=== PATIENT | female | born 1950 | race Caucasian/White ===

== ENCOUNTER 2018-08-04 17:23 | Inpatient (IN) | payer MEDICARE ==
[~2018-08-04] VITALS: Ht 160 cm; Wt 114.6 kg
[~2018-08-04 17:23] MED LIST: ANASTROZOLE1 MG PO; ATIVAN1 MG PO; CARTIA XT120 MG; CLARITIN PO; COUMADIN PO; FLONASE16 GM; HEMOCYTE PLUS1 EACH PO; HYDROCODON-ACE1 EA11 PO; LEVAQUIN500 MG PO; LISINOPRIL; PANTOPRAZOLE SO40 MG PO; PAROXETINE HCL10 MG PO; PREVACID PO; PROAIR HFA INH8.5 GM INH; PROTONIX40 MG/ML PO; TAMOXIFEN; TESSALON PERLE100 M1 PO; TYLENOL PM EX-1 EACH PO; ULTRAM50 MG PO; WARFARIN SODIUM5 MG PO; XARELTO10 MG; Z.0.ANASTROZOLE1 MG PO; Z.0.HEMOCYTE PLUS1 E PO; Z.0.VENTOLIN HFA18 G IH; [UNRECOGNIZED DRUG - OTHER] NS; [UNRECOGNIZED DRUG - OTHER] NS; [UNRECOGNIZED DRUG - OTHER] PO; [UNRECOGNIZED DRUG - OTHER] PO
[2018-08-04] MEDS ORDERED: SODIUM CHLORIDE 0.9% 250ML 250 ML IV STA (19:32)
[2018-08-04] MEDS ORDERED: ASPIRIN 81 MG CHEW TAB PO ONE ×2 (19:45→23:15)
[2018-08-04 20:00] LABS: BASOPHILS # (AUTO) 0.1 (0.0-0.1); BASOPHILS % 0.5 % (0.0-1.0); EOSINOPHILS # (AUTO) 0.6 (0.0-0.4); EOSINOPHILS % 5.7 % (0.0-6.0); HEMATOCRIT 30.8 % (34.2-44.1); HEMOGLOBIN 9.6 g/dL (12.0-16.0); LYMPHOCYTES # (AUTO) 2.5 (1.0-3.2); LYMPHOCYTES % 22.7 % (18.0-39.1); MEAN CORPUSCULAR HEMOGLOBIN 26.2 pg (28-32); MEAN CORPUSCULAR HGB CONC 31.2 g/dL (31-35); MEAN CORPUSCULAR VOLUME 84.2 fL (81-99); MONOCYTES # (AUTO) 0.9 (0.2-0.8); MONOCYTES % 7.7 % (4.4-11.3); NEUTROPHILS # (AUTO) 6.9 (2.1-6.9); NEUTROPHILS % 62.9 % (38.7-80.0); PLATELET COUNT 381 x10e3/uL (140-360); RED BLOOD COUNT 3.66 x10e6/uL (3.6-5.1); RED CELL DISTRIBUTION WIDTH 15.9 % (11.7-14.4)
[2018-08-04 20:09] LABS: INR 0.95; PROTHROMBIN TIME 13.6 seconds (11.9-14.5)
[2018-08-04 20:10] LABS: PARTIAL THROMBOPLASTIN TIME 25.9 seconds (23.8-35.5)
[2018-08-04 20:19] LABS: ALANINE AMINOTRANSFERASE 13 IU/L (0-55); ALBUMIN 2.8 g/dL (3.5-5.0); ALBUMIN/GLOBULIN RATIO 0.6 (0.8-2.0); ALKALINE PHOSPHATASE 87 IU/L (40-150); ANION GAP 11.1 mmol/L (8-16); BLOOD UREA NITROGEN 6 mg/dL (7-26); BUN/CREATININE RATIO 8 (6-25); CALCIUM 9.3 mg/dL (8.4-10.2); CARBON DIOXIDE 26 mmol/L (22-29); CHLORIDE 98 mmol/L (98-107); CREATINE KINASE 12 IU/L (29-168); CREATININE, SERUM 0.72 mg/dL (0.57-1.11); EST GLOMERULAR FILTRATION RATE > 60 ML/MIN (60-); GLUCOSE 110 mg/dL (74-118); POTASSIUM 3.1 mmol/L (3.5-5.1); SODIUM 132 mmol/L (136-145)
[2018-08-04] MEDS ORDERED: TRAMADOL HCL 50 MG TAB PO ONE (20:30)
--- NOTE | 2018-08-04 20:30 | Diagnostic Imaging Report ---
EXAMINATION: CHEST SINGLE (PORTABLE) INDICATION: Weakness. COMPARISON: 02/16/2012. FINDINGS: TUBES and LINES: Left chest Port-A-Cath with distal tip projected on the expected location of the high SVC/limited vein, unchanged. LUNGS: Lungs are mildly hypoinflated. Biapical pleural scarring. There is no evidence of pneumonia or pulmonary edema. PLEURA: No pleural effusion or pneumothorax. HEART AND MEDIASTINUM: The cardiomediastinal silhouette is unremarkable. BONES AND SOFT TISSUES: No acute osseous lesion. Soft tissues are unremarkable. UPPER ABDOMEN: No free air under the diaphragm. IMPRESSION: No acute thoracic abnormality. Signed by: Dr. Saima Mcneil M.D. on 08/04/2018 8:27 PM
[2018-08-04] MEDS ORDERED: POTASSIUM CHLORIDE 20 MEQ TAB CR PO ONE (20:45)
[2018-08-04 22:46] LABS: BILIRUBIN,URINE NEGATIVE (NEGATIVE); CLARITY,URINE SL CLOUDY (CLEAR); COLOR,URINE YELLOW (YELLOW); KETONES,URINE NEGATIVE (NEGATIVE); LEUKOCYTE ESTERASE ,URINE NEGATIVE (NEGATIVE); NITRITE,URINE NEGATIVE (NEGATIVE); PROTEIN,URINE DIPSTICK NEGATIVE (NEGATIVE); URINE UROBILINOGEN 0.2 mg/dL (0.2 - 1)
[2018-08-04 22:59] LABS: BACTERIA,URINE MANY /HPF; EPITHELIAL CELLS,URINE FEW /LPF; RBC,URINE 0-5 /HPF (0-5)
--- OUTSIDE RECORDS SUMMARY | 2018-08-05 02:54 | XMS REPORT ---
Author Author [facility] Address Unknown Phone Unavailable Care Team Providers Care Sign Out Clerk Name Role Phone Royal KEYS Unavailable Unavailable Problems This patient has no known problems. Allergies, Adverse Reactions, Alerts This patient has no known allergies or adverse reactions. Medications This patient has no known medications. Results Test Description Test Time Test Comments Text Results Atomic Results Result Comments CHEST SINGLE (PORTABLE) 2018-08-04 20:17:00 [place] [id number] Patient Name: EULALIO RAM MR #: [id number] : 1950 Age/Sex: 67/F Req #: [id number] Adm Physician: Ordered by: EDWAR KEYS MD Report #: [id number] Location: ER Room/Bed: Procedure: [id number] DX/CHEST SINGLE (PORTABLE) Exam Date: Exam Time: REPORT STATUS: Signed EXAMINATION: CHEST SINGLE (PORTABLE) INDICATION: We akness. COMPARISON: 02/16/2012. FINDINGS: TUBES and LINES: Left chest Port-A-Cath with distal tip projected on the expected location of the high SVC/limited vein, unchanged. LUNGS: Lungs are mildly hypoinflated. Biapical pleural scarring. There is no evidence of pneumonia or pulmonary edema. PLEURA: No pleural effusion or pneumothorax. HEART AND MEDIASTINUM: The cardiomediastinal silhouette is unremarkable. BONES AND SOFT TISSUES: No acute osseous lesion. Soft tissues are unremarkable. UPPER ABDOMEN: No free air under the diaphragm. IMPRESSION: No acute thoracic abnormality. Signed by: Dr. Saima Parra M.D. on 08/04/2018 8:27 PM Dictated By: ALEX PARRA MD, MD 26 Transcribed By: JANESSA on 08/04/182026 COPY TO: EDWAR KEYS MD
[2018-08-05] MEDS: NITROFURANTOIN 50 MG CAP PO ONE ×2 (02:58→03:04)
[2018-08-05] MEDS ORDERED: NITROFURANTOIN MACROCRYSTALS 100 MG CAP ONE (03:04)
[2018-08-05] MEDS ORDERED: TRAMADOL HCL 50 MG TAB PO PRN (04:45)
[2018-08-05 05:43] LABS: CREATINE KINASE MB 0.6 ng/mL (0-5.0)
--- NOTE | 2018-08-05 06:44 | History and Physical ---
NO DICTATION, LENGTH 0:10 Job#: [id number] RI
[2018-08-05 14:34] LABS: CREATINE KINASE MB 0.7 ng/mL (0-5.0)
[2018-08-05] MEDS ORDERED: ALBUTEROL SULFATE HFA 8GM INHALATION AEROSOL INH PRN (14:45)
[2018-08-05] MEDS ORDERED: POTASSIUM CHLORIDE 10MEQ EA PO ONE (15:00)
[2018-08-05 15:49] VITALS: BP 106/56
[2018-08-05] MEDS: RIVAROXABAN 15 MG TABLET PO SCH (17:15)
[2018-08-05 19:55] VITALS: BP 119/57
[2018-08-05 20:00] VITALS: BP 119/57
[2018-08-05] MEDS: TRAMADOL HCL 50 MG TAB PO PRN (20:40)
[2018-08-05] MEDS ORDERED: DIPHENHYDRAMINE PO PRN (21:00)
[2018-08-05] MEDS ORDERED: ACETAMINOPHEN PO PRN (21:00)
[2018-08-06] VITALS (7 sets, daily range): BP systolic 105–145; BP diastolic 53–67
[2018-08-06 05:20] LABS: BASOPHILS # (AUTO) 0.1 (0.0-0.1); BASOPHILS % 0.8 % (0.0-1.0); EOSINOPHILS # (AUTO) 0.8 (0.0-0.4); EOSINOPHILS % 8.4 % (0.0-6.0); HEMOGLOBIN 9.2 g/dL (12.0-16.0); LYMPHOCYTES # (AUTO) 2.6 (1.0-3.2); LYMPHOCYTES % 27.9 % (18.0-39.1); MEAN CORPUSCULAR HEMOGLOBIN 26.1 pg (28-32); MEAN CORPUSCULAR HGB CONC 30.7 g/dL (31-35); MONOCYTES # (AUTO) 0.8 (0.2-0.8); MONOCYTES % 8.6 % (4.4-11.3); NEUTROPHILS # (AUTO) 5.1 (2.1-6.9); PLATELET COUNT 394 x10e3/uL (140-360); RED BLOOD COUNT 3.53 x10e6/uL (3.6-5.1); RED CELL DISTRIBUTION WIDTH 15.9 % (11.7-14.4)
[2018-08-06 05:41] LABS: ANION GAP 11.7 mmol/L (8-16); BLOOD UREA NITROGEN 8 mg/dL (7-26); BUN/CREATININE RATIO 11 (6-25); CALCIUM 9.1 mg/dL (8.4-10.2); CARBON DIOXIDE 28 mmol/L (22-29); CHLORIDE 101 mmol/L (98-107); CREATININE, SERUM 0.74 mg/dL (0.57-1.11); EST GLOMERULAR FILTRATION RATE > 60 ML/MIN (60-); GLUCOSE 104 mg/dL (74-118); POTASSIUM 3.7 mmol/L (3.5-5.1); SODIUM 137 mmol/L (136-145)
[2018-08-06] MEDS: TRAMADOL HCL 50 MG TAB PO PRN ×2 (05:46→18:11)
[2018-08-06] MEDS: PAROXETINE HCL 20 MG TAB PO SCH (08:52)
[2018-08-06] MEDS: PANTOPRAZOLE SOD 40 MG TABEC PO SCH (08:52)
[2018-08-06] MEDS ORDERED: PAROXETINE HCL 10 MG PO SCH (09:00)
[2018-08-06] MEDS ORDERED: DILTIAZEM HCL ER 120 MG CAPCR PO SCH ×2 (09:00)
[2018-08-06] MEDS ORDERED: DILTIAZEM HCL 180 MG CAP ER PO SCH (09:00)
[2018-08-06] MEDS ORDERED: RIVAROXABAN 10 MG TABLET PO SCH (09:00)
[2018-08-06] MEDS: DILTIAZEM HCL ER 120 MG CAPCR PO SCH (10:06)
--- NOTE | 2018-08-06 16:20 | Progress Note ---
DATE: INTERNAL MEDICINE PROGRESS NOTE SUBJECTIVE: A 67-year-old female came here with chest pain. PHYSICAL EXAM VITAL SIGNS: Blood pressure 120/67, temperature 97.2, heart rate 93 per minute, respiratory rate 19 per minute, and oxygen saturation 93%. HEART: Regular rhythm. Normal S1, S2 sounds. LUNGS: Clear bilaterally. ABDOMEN: Soft. EXTREMITIES: Show no evidence of cyanosis, edema, or trauma. BLOOD WORK: On the BMP, sodium 137, potassium 3.7, chloride 101, CO2 of 28, BUN 8, creatinine 0.74, and glucose 104. On the CBC, white blood count 9.44, hemoglobin 9.2, hematocrit 30.0, and platelet count 384,000. PT 13.6, INR 0.95, PTT 25.9, AST 19, ALT 13, total bilirubin 0.4, and alkaline phosphatase 87. The EKG showed sinus rhythm with sinus arrhythmia, occasional PVCs. No evidence of any ST segment elevation or depression. Troponins are negative. IMPRESSION AND PLAN: We are going to get a cardiology consult with Dr. Sally Ruby. Continue albuterol q.6 hours. Tramadol 50 mg q.4 hours. Protonix 40 mg daily. Paxil 10 mg daily. She is on Xarelto 15 mg daily and Cardizem 240 mg daily. Cardiology will decide whether or not she needs stress test. Job#: [id number] ROLY
[2018-08-06] MEDS: RIVAROXABAN 15 MG TABLET PO SCH (17:10)
[2018-08-07] VITALS: BP 103/51
--- NOTE | 2018-08-07 00:58 | Consultation ---
DATE OF CONSULTATION: August 06, 2018 CARDIOLOGY CONSULTATION REQUESTING PHYSICIAN: Dr. Ji. REASON FOR CONSULTATION: Chest pain. HISTORY OF PRESENT ILLNESS: This is a 67-year-old woman with history of asthma, COPD, reported history of venous thrombosis, and atrial fibrillation, on Xarelto, who presents with complaints of chest pain. The patient reports she began having stabbing chest pain yesterday morning, 6/10 in severity associated with diaphoresis and shortness of breath. This lasted approximately 2 to 3 minutes. The patient subsequently presented to the ER for further evaluation. Of note, patient indicates she had symptoms suggestive of orthopnea for 1 year as well as lower extremity swelling for the last week. REVIEW OF SYSTEMS: Negative except as per HPI. PAST MEDICAL HISTORY 1. History of venous thrombosis. 2. Atrial fibrillation, on Xarelto. 3. Asthma/COPD. 4. Breast cancer, status post radical mastectomy. PAST SURGICAL HISTORY 1. Radical mastectomy. 2. Right ganglion cyst removal. 3. Hysterectomy. 4. Knee surgery. 5. Ankle surgery. ALLERGIES: PLEASE SEE EMR. MEDICATIONS: Please see medication list. SOCIAL HISTORY: Previously smoked 2 packs a day for approximately 10 years, but quit 30 years ago. No alcohol or drugs. FAMILY HISTORY: Pertinent for father with heart disease, although details are not available. PHYSICAL EXAMINATION VITAL SIGNS: Temperature 97.2 degrees, pulse 93, respiratory rate 19, blood pressure 120/67, oxygen saturation 93% on 3 liters nasal cannula. GENERAL: Morbidly obese woman, in no acute distress. HEENT: Normocephalic, atraumatic. Pupils equal. No sclerae icterus. NECK: Supple. No thyromegaly or cervical lymphadenopathy. No carotid bruits. LUNGS: Clear to auscultation bilaterally. No wheezes or crackles. CARDIOVASCULAR: Normal rate. Regular rhythm. No murmur. Normal S1 and S2. ABDOMEN: Soft, nontender. EXTREMITIES: Trace edema at the ankles. LABS: WBC 9.44, hemoglobin 9.2, hematocrit 30, platelets 394. Sodium 137, potassium 3.7, chloride 101, CO2 of 28, BUN 8, creatinine 0.74, troponin 0.007. BNP 123. LDL 100, HDL 31, triglycerides 113, , cholesterol 154. Chest x-ray, no acute thoracic abnormality. EKG; sinus rhythm with sinus arrhythmia and occasional PVCs. No specific ST abnormality. IMPRESSION 1. Chest pain. 2. Atrial fibrillation, on Xarelto. 3. History of venous thrombosis. 4. Asthma/chronic obstructive pulmonary disease. RECOMMENDATIONS: Patient ruled out for myocardial infarction with serial cardiac biomarkers. Due to the reported history of venous thrombosis, differential includes pulmonary embolism. We will check a d-dimer; if positive, proceed with CTA of the chest and the bilateral lower extremity venous Doppler. In the meantime, obtain echocardiogram. Given risk factors, ischemic evaluation is warranted with pharmacologic nuclear stress test. Monitor patient on telemetry. Continue Xarelto as well as Diltiazem. Thank you for this consult. We will continue to follow. Job#: [id number] DEBBIE
[2018-08-07 04:00] VITALS: BP 118/59
[2018-08-07] MEDS: TRAMADOL HCL 50 MG TAB PO PRN ×2 (05:21→20:06)
[2018-08-07 08:44] VITALS: BP 116/58
[2018-08-07] MEDS: PAROXETINE HCL 20 MG TAB PO SCH (10:23)
[2018-08-07] MEDS: DILTIAZEM HCL ER 120 MG CAPCR PO SCH (10:23)
[2018-08-07] MEDS: PANTOPRAZOLE SOD 40 MG TABEC PO SCH (10:23)
[2018-08-07 12:23] VITALS: BP 120/59
--- NOTE | 2018-08-07 13:48 | Progress Note ---
DATE: INTERNAL MEDICINE PROGRESS NOTE SUBJECTIVE: Patient is complaining of shortness of breath when she lies flat. We are going to give her some albuterol. Apparently, she had a history of asthma before. PHYSICAL EXAMINATION VITAL SIGNS: Blood pressure 116/58, temperature 96.8, heart rate 83 per minute, respiratory rate 19 per minute, oxygen saturation 92%. HEART: Showed regular rhythm. Normal S1, S2 sounds. LUNGS: Clear bilaterally. ABDOMEN: Soft. EXTREMITIES: Show no evidence of cyanosis, edema, or trauma. LABS: On the BMP; sodium 137, potassium 3.7, chloride 101, CO2 of 28, BUN 9, creatinine 0.74, glucose 104. On the CBC; white blood count 9.44, hemoglobin 9.2, hematocrit 30.0, platelet count 394,000. PT 13.6, PTT 25.9, INR 0.95. AST 19, ALT 13, total bilirubin 0.4, alkaline phosphatase of 87. FINAL IMPRESSION 1. Chest pain, rule out coronary artery syndrome. 2. History of pulmonary embolism. 3. History of chronic obstructive pulmonary disease. 4. Chronic anemia. PLAN OF TREATMENT: We are going to do a CT of the chest because of the D-dimer being positive. The patient has been refusing that because she said she cannot lie flat because of her asthma, so she wants albuterol before the test, so we are going to provide her with albuterol before she goes and then she will have to start albuterol 2 puffs every 6 hours as needed for wheezing. She is scheduled for an adenosine Cardiolite tomorrow by Dr. Ruby to rule out coronary artery disease because she came with chest pain. Continue Cardizem 240 mg daily. Continue Protonix 40 mg daily. Continue Paxil 10 mg daily, Xarelto 15 mg daily, and tramadol 50 mg q.4 hours as needed for pain. Dr. Ruby is on the case from the cardiology point of view also. We have done a chest x-ray, which came back negative and so far, the troponins are negative. Job#: [id number] DERREK
[2018-08-07] MEDS ORDERED: FUROSEMIDE INJ 10 MG/ML 4 ML VIAL IV SCH (15:00)
[2018-08-07 16:08] VITALS: BP 121/55
[2018-08-07] MEDS: FUROSEMIDE INJ 10 MG/ML 4 ML VIAL IV SCH ×2 (17:10→21:00)
[2018-08-07] MEDS: RIVAROXABAN 15 MG TABLET PO SCH (17:10)
--- NOTE | 2018-08-07 18:49 | Progress Note ---
DATE: August 07, 2018 CARDIOLOGY PROGRESS NOTE SUBJECTIVE: The patient complains of chest pressure and shortness of breath. OBJECTIVE VITAL SIGNS: Temperature 97.4 degrees, pulse 87, respiratory rate 19, blood pressure 120/59, oxygen saturation 97% on 3 liters nasal cannula. GENERAL: Morbidly obese woman, in no acute distress. LUNGS: Clear to auscultation bilaterally. No wheezes or crackles. CARDIOVASCULAR: Normal rate, regular rhythm. No murmur. Normal S1, S2. ABDOMEN: Soft, nontender. EXTREMITIES: No edema. CARDIAC MEDICATIONS 1. Rivaroxaban 15 mg p.o. daily. 2. Diltiazem 240 mg p.o. daily. LABS: None today. TELEMETRY: Normal sinus rhythm. IMPRESSION 1. Chest pressure and shortness of breath. 2. Elevated D-dimer. 3. Atrial fibrillation, on Xarelto. 4. History of venous thrombosis. 5. Asthma/chronic obstructive pulmonary disease. RECOMMENDATIONS: Patient ruled out for myocardial infarction with serial cardiac biomarkers. Due to elevated D-dimer, CTA of the chest was ordered; however, patient refused both last night and today. Continue Xarelto. Unclear why patient is only on 15 mg daily as her renal function is reasonable. We will increase Xarelto to 20 mg daily. Nuclear stress test is warranted and planned for the morning if patient will agree. Continue current cardiac medications. Otherwise, monitor patient on telemetry. We will start Lasix given elevated BNP and evidence of diastolic dysfunction on echocardiogram. Thank you for this consult. We will continue to follow. Job#: [id number] ROLY
[2018-08-07 20:00] VITALS: BP_SYST 103; BP_SYST 111; BP_DIAS 50; BP_DIAS 53
[2018-08-08] VITALS (8 sets, daily range): BP systolic 103–136; BP diastolic 50–62
[2018-08-08] MEDS: FUROSEMIDE INJ 10 MG/ML 4 ML VIAL IV SCH ×3 (09:00→21:00)
[2018-08-08] MEDS: PAROXETINE HCL 20 MG TAB PO SCH (09:16)
[2018-08-08] MEDS: PANTOPRAZOLE SOD 40 MG TABEC PO SCH (09:16)
[2018-08-08] MEDS: DILTIAZEM HCL ER 120 MG CAPCR PO SCH (09:16)
[2018-08-08] MEDS: RIVAROXABAN 20 MG TABLET PO SCH (17:40)
[2018-08-08] MEDS ORDERED: DIPHENOXYLATE/ATROPINE TAB PO PRN (18:30)
--- NOTE | 2018-08-08 22:55 | Progress Note ---
DATE: August 08, 2018 CARDIOLOGY PROGRESS NOTE SUBJECTIVE: No major events overnight. Patient now agrees to get a V/Q scan as well as a stress test which she had been refusing earlier. OBJECTIVE VITAL SIGNS: Please see nursing notes. GENERAL: Obese white female, no acute distress. Well-developed, well-nourished. CARDIOVASCULAR: Regular rate and rhythm. No murmurs, rubs or gallops. Palpable carotid pulses. Palpable radial pulses. 1+ lower extremity edema at the ankles. LUNGS: Clear to auscultation bilaterally. ABDOMEN: Soft, nontender, nondistended, obese. No masses. NEURO AND PSYCH: Alert and oriented to person, place, and time. Anxious affect. CARDIAC MEDICATIONS: Reviewed. LABORATORY DATA: Reviewed. IMAGING DATA: Reviewed. TELEMETRY DATA: Reviewed. Normal sinus rhythm. ASSESSMENT 1. Paroxysmal atrial fibrillation. 2. Chest pain. 3. History of multiple deep vein thromboses. 4. Elevated D-dimer. 5. Hypertension. 6. Rheumatoid arthritis. 7. Noncompliance. RECOMMENDATIONS: Continue current cardiac medications. Awaiting results of the nuclear stress test tomorrow as well as the V/Q scan. Continue anticoagulation given atrial fibrillation and history of DVT. Thank you for this consult. Will continue to follow. Job#: [id number] [employer]
[2018-08-09] VITALS (7 sets, daily range): BP systolic 105–136; BP diastolic 52–70
[2018-08-09] MEDS: TRAMADOL HCL 50 MG TAB PO PRN ×2 (00:23→17:46)
[2018-08-09 05:47] LABS: BASOPHILS # (AUTO) 0.1 (0.0-0.1); BASOPHILS % 0.8 % (0.0-1.0); EOSINOPHILS # (AUTO) 0.6 (0.0-0.4); EOSINOPHILS % 5.7 % (0.0-6.0); HEMATOCRIT 30.6 % (34.2-44.1); HEMOGLOBIN 9.4 g/dL (12.0-16.0); LYMPHOCYTES # (AUTO) 2.4 (1.0-3.2); LYMPHOCYTES % 22.1 % (18.0-39.1); MEAN CORPUSCULAR HEMOGLOBIN 25.7 pg (28-32); MEAN CORPUSCULAR HGB CONC 30.7 g/dL (31-35); MEAN CORPUSCULAR VOLUME 83.6 fL (81-99); MONOCYTES # (AUTO) 0.9 (0.2-0.8); MONOCYTES % 8.3 % (4.4-11.3); NEUTROPHILS # (AUTO) 6.6 (2.1-6.9); NEUTROPHILS % 62.7 % (38.7-80.0); PLATELET COUNT 393 x10e3/uL (140-360); RED BLOOD COUNT 3.66 x10e6/uL (3.6-5.1); RED CELL DISTRIBUTION WIDTH 15.8 % (11.7-14.4)
[2018-08-09 06:14] LABS: ANION GAP 13.7 mmol/L (8-16); BLOOD UREA NITROGEN 11 mg/dL (7-26); BUN/CREATININE RATIO 14 (6-25); CALCIUM 9.5 mg/dL (8.4-10.2); CARBON DIOXIDE 28 mmol/L (22-29); CHLORIDE 99 mmol/L (98-107); CREATININE, SERUM 0.77 mg/dL (0.57-1.11); EST GLOMERULAR FILTRATION RATE > 60 ML/MIN (60-); GLUCOSE 110 mg/dL (74-118); POTASSIUM 3.7 mmol/L (3.5-5.1); SODIUM 137 mmol/L (136-145)
[2018-08-09] MEDS: PANTOPRAZOLE SOD 40 MG TABEC PO SCH (07:30)
[2018-08-09] MEDS: DILTIAZEM HCL ER 120 MG CAPCR PO SCH (08:20)
[2018-08-09] MEDS: PAROXETINE HCL 20 MG TAB PO SCH (08:20)
[2018-08-09] MEDS: FUROSEMIDE INJ 10 MG/ML 4 ML VIAL IV SCH ×3 (09:00→20:45)
[2018-08-09] MEDS ORDERED: REGADENOSON 0.4 MG/5 ML SYR IV ONE (13:05)
--- NOTE | 2018-08-09 15:40 | Progress Note ---
DATE: August 09, 2018 CARDIOVASCULAR PROGRESS NOTE SUBJECTIVE: No major events overnight. Had plan for stress test today. OBJECTIVE VITAL SIGNS: Temperature 97.9, pulse 92, respiratory rate 18, blood pressure 125/66, satting 97% on 3 liters nasal cannula. GENERAL: Elderly white female in no acute distress. CARDIOVASCULAR: Regular rate and rhythm. No murmur, rubs or gallops. LUNGS: Clear to auscultation bilaterally. ABDOMEN: Obese, soft, nontender, nondistended. NEURO AND PSYCH: Alert and oriented to person, place, and time. Normal affect. CARDIAC MEDICATIONS: Reviewed. LABORATORY DATA: Reviewed. IMAGING DATA: Reviewed. TELEMETRY DATA: Reviewed. Shows sinus rhythm with PVCs. ASSESSMENT AND PLAN 1. Chest pain. 2. Shortness of breath. 3. Elevated D-dimer. 4. Paroxysmal atrial fibrillation. 5. History of venous thrombosis. 6. Asthma and chronic obstructive pulmonary disease. 7. Rheumatoid arthritis. RECOMMENDATIONS: Ruled out for acute MA with serial cardiac biomarkers earlier this admission. Patient is on Xarelto for her history of DVT and her history of atrial fibrillation. Nuclear stress test performed today, awaiting results. Thank you for this consult. We will continue to follow. Job#: [id number]
[2018-08-09] MEDS: RIVAROXABAN 20 MG TABLET PO SCH (17:45)
[2018-08-10] VITALS (8 sets, daily range): BP systolic 105–120; BP diastolic 55–60
[2018-08-10] MEDS: TRAMADOL HCL 50 MG TAB PO PRN ×4 (03:59→21:53)
[2018-08-10] MEDS: FUROSEMIDE INJ 10 MG/ML 4 ML VIAL IV SCH ×3 (09:00→21:00)
[2018-08-10] MEDS: DILTIAZEM HCL ER 120 MG CAPCR PO SCH (09:09)
[2018-08-10] MEDS: PAROXETINE HCL 20 MG TAB PO SCH (09:09)
[2018-08-10] MEDS: PANTOPRAZOLE SOD 40 MG TABEC PO SCH (09:09)
[2018-08-10] MEDS: RIVAROXABAN 20 MG TABLET PO SCH (17:32)
--- NOTE | 2018-08-10 20:09 | Progress Note ---
DATE: August 10, 2018 CARDIOLOGY PROGRESS NOTE SUBJECTIVE: No major events overnight. Had a stress test yesterday. OBJECTIVE VITAL SIGNS: Temperature 98.2, pulse 96, respiratory rate 20, blood pressure 114/55, satting 96% on nasal cannula. GENERAL: Elderly white female in no acute distress. CARDIOVASCULAR: Regular rate and rhythm. No murmurs, rubs or gallops. LUNGS: Clear to auscultation bilaterally. ABDOMEN: Obese, soft, nontender. No masses. NEURO AND PSYCH: Alert and oriented to person, place and time. Normal affect. CARDIOVASCULAR MEDICATIONS: Reviewed. LABORATORY DATA: Reviewed. Imaging data reviewed. Telemetry data reviewed. ASSESSMENT AND PLAN 1. Atypical chest pain. 2. Shortness of breath. 3. Elevated D-dimer. 4. Paroxysmal atrial fibrillation. 5. History of deep venous thrombosis. 6. Asthma and chronic obstructive pulmonary disease. 7. Rheumatoid arthritis. RECOMMENDATIONS: Reviewed her stress test from yesterday. It shows a small area of apical perfusion defect, likely occult pending versus small scar. This is a low risk finding and does not require further invasive management at this time unless the patient remains symptomatic despite optimal medical therapy. Would continue her calcium channel blockers and Xarelto for atrial fibrillation. Thank you for this consult. Will continue to follow. Patient is okay to be discharged from a cardiovascular standpoint. She will follow up with Dr. Sally Ruby in the office in 2 weeks post discharge. Job#: [id number] ME
[2018-08-11] VITALS: BP 105/49
[2018-08-11 04:00] VITALS: BP 107/57
[2018-08-11 07:59] VITALS: BP 105/52
[2018-08-11] MEDS: TRAMADOL HCL 50 MG TAB PO PRN ×2 (08:00→21:31)
[2018-08-11] MEDS: FUROSEMIDE INJ 10 MG/ML 4 ML VIAL IV SCH ×3 (08:01→21:00)
[2018-08-11] MEDS: PAROXETINE HCL 20 MG TAB PO SCH (08:01)
[2018-08-11] MEDS: DILTIAZEM HCL ER 120 MG CAPCR PO SCH (08:01)
[2018-08-11] MEDS: PANTOPRAZOLE SOD 40 MG TABEC PO SCH (08:01)
[2018-08-11 11:52] VITALS: BP 109/55
[2018-08-11 15:56] VITALS: BP 116/58
[2018-08-11] MEDS: RIVAROXABAN 20 MG TABLET PO SCH (18:47)
[2018-08-11 20:00] VITALS: BP 124/58
--- NOTE | 2018-08-11 20:54 | Progress Note ---
DATE: August 11, 2018 CARDIOLOGY PROGRESS NOTE SUBJECTIVE: No major events overnight. OBJECTIVE: VITAL SIGNS: Please see medical record. GENERAL: Obese white female, well developed, well nourished. CARDIOVASCULAR: Regular rate and rhythm. No murmurs, rubs, or gallops. Palpable carotid pulses. Palpable radial pulses. LUNGS: Clear to auscultation bilaterally. ABDOMEN: Obese, soft, nontender, nondistended. NEURO AND PSYCH: Alert and oriented to person, place, and time. Normal affect. CARDIOVASCULAR MEDICATIONS: Reviewed. LABORATORY DATA: Reviewed. TELEMETRY DATA: Reviewed, shows normal sinus rhythm. ASSESSMENT: 1. Paroxysmal atrial fibrillation. 2. History of multiple deep venous thrombosis and pulmonary embolism in the past. 3. Atypical chest pain. 4. Hypertension. 5. Hyperlipidemia. 6. Chronic obstructive pulmonary disease. 7. Rheumatoid arthritis. PLAN: Continue her current cardiovascular medications including Xarelto for anticoagulation, intermediate accountant. Stress test results reviewed, shows small area of apical defect, scar versus apical thinning versus artifact. This is a low-risk finding and does not need invasive management at this time. Will continue to treat it medically. If patient continues to have symptom as an outpatient, will discuss cardiac catheterization with her then. Thank you for this consult. Will continue to follow. Job#: [id number]
--- NOTE | 2018-09-05 03:45 | Cardiology Report ---
DATE OF STUDY: August 09, 2018 PROCEDURE TITLE: Rest/stress single isotope SPECT imaging with pharmacologic stress and gated SPECT imaging. INDICATIONS: Chest pain. PROCEDURE: Pharmacologic stress test was performed with regadenoson per protocol. The heart rate was 96 beats per minute at rest and increased to 116 beats per minute during the regadenoson infusion. The rest blood pressure was 116/68 mmHg and increased to 128/64 mmHg, which is a normal response. The resting electrocardiogram demonstrated normal sinus rhythm. There were no ST segment changes consistent with myocardial ischemia. Next, myocardial perfusion imaging was performed at rest following the injection of 32 mCi of tetrofosmin. The following day at peak exercise, the patient was injected with 33 mCi of tetrofosmin. Gated post-stress tomographic imaging was performed. FINDINGS: The overall quality of the study is fair. The left ventricle is noted to be normal size on the rest and stress studies. SPECT images demonstrate a small severe perfusion defect at the apex on rest and stress studies. Gated SPECT imaging reveals normal myocardial thickening and wall motion. The left ventricular ejection fraction was calculated to be 58%. IMPRESSION: Myocardial perfusion imaging is abnormal. There is a small apical transmural scar. Attenuation artifact cannot be ruled out. Overall left ventricular systolic function was normal without regional wall motion abnormalities. Job#: [id number] EV
--- NOTE | 2018-09-28 01:43 | Discharge Summary ---
CHIEF COMPLAINT: Chest pain. FINAL DIAGNOSES: 1. Chronic diastolic congestive heart failure. 2. Osteoarthritis. 3. Coronary artery disease. PROCEDURE: Stress testing. DISPOSITION: Home. [id number]-old female with known history of hypercoagulability state, COPD, major depressive disorder, chronic pain syndrome, brought to the ER with a 1-day history of midsternal chest pain, described as pressure, associated with shortness of breath, nausea along with fever and chills, along with cough, which is nonproductive. In the emergency room, she was noted to have a temperature of 98.4, BP 118/63, pulse 105. Worked up and evaluated. Studies were performed, blood work, x-rays. Patient admitted to facility for care regarding issues of chest pain with shortness of breath, rule out cardiac ischemia, rule out pneumonia versus acute bronchitis, bacterial. Begin IV antibiotic coverage, will be monitoring cardiac enzymes, begin nebulizer treatments. From the ER, patient was placed in IMCU. She was receiving a cardiac diet. She was undergoing respiratory care. Daily medications were continuing as well. Laboratory studies were showing stable electrolytes. Kidney functions were stable. Glucose 104. CBC reveals a hemoglobin of 9.2, white cell count was normal. On the med-surg floor, her care was continuing. She was noted to be resting comfortably. Underwent the stress test. She was continued to be managed for atypical chest pain. Continued to be maintained in no distress. Further stability was noted and the patient was able to be discharged home, and will continue outpatient care regarding her chronic diastolic congestive heart failure. EKG shows sinus rhythm with sinus arrhythmia with occasional premature ventricular complexes. Followed with an echocardiogram showing ejection fraction between 45% and 50%, trace pericardial effusion. With discharge, patient was released home. Will be continuing on a heart healthy diet. No equipment or supplies necessary. No drains or [place] are needed. Activity level as directed by me as well as by cardiology. The patient will continue on Tylenol PM Extra Strength 2 tablets at bedtime as needed for sleep; albuterol 2 inhalations every 4 hours as needed for shortness of breath; diltiazem 120, patient will be taking 240 mg daily; Protonix 40 mg daily; paroxetine 10 mg daily; Xarelto 10 mg daily; Ultram 50 mg every 4 hours as needed for pain. She will be returning to my office within 1 to 2 weeks for followup or sooner if she has any further reoccurrence of similar symptoms or if she has any further concerns or questions. Dictated By: AUREA Del Cid Job#: [id number]
== END 2018-08-11 22:00 | disposition home or self-care (01) | DRG 292 ==
LOC: ER 17:23 → ERHOLD 23:10 → UNDOADMOB 08-05 02:20 → ERHOLD 08-05 02:20 → IMCU 08-05 15:12 → OBSVTOIN 08-06 18:56 → MED/SURG 08-06 21:43
DX: I11.0 Hypertensive heart disease with heart failure (principal); Q21.0 Ventricular septal defect; Z68.41 Body mass index [BMI] 40.0-44.9, adult; I25.10 Atherosclerotic heart disease of native coronary artery without angina pectoris; I50.32 Chronic diastolic (congestive) heart failure; R07.89 Other chest pain; I48.0 Paroxysmal atrial fibrillation; J44.9 Chronic obstructive pulmonary disease, unspecified; Z79.01 Long term (current) use of anticoagulants; Z86.718 Personal history of other venous thrombosis and embolism; J45.909 Unspecified asthma, uncomplicated; M19.90 Unspecified osteoarthritis, unspecified site; D64.9 Anemia, unspecified; M06.9 Rheumatoid arthritis, unspecified; E78.5 Hyperlipidemia, unspecified; R79.1 Abnormal coagulation profile; Z91.19 Patient's noncompliance with other medical treatment and regimen; E66.01 Morbid (severe) obesity due to excess calories
CPT/HCPCS: 36415; 71045; 78452; 80048; 80053; 80061; 81001; 82550; 82553; 83880; 84484; 85025; 85379; 85610; 85730; 86039; 86140; 86431; 87493; 93005; 93017; 93306; 99285; A9502; G0378; J1940; J7050

== ENCOUNTER 2021-03-10 17:52 | Emergency (ER) | payer MEDICARE ==
[~2021-03-10] VITALS: Ht 160 cm; Wt 114.3 kg
[~2021-03-10 17:52] MED LIST changes: -XARELTO10 MG; +XARELTO10 MG PO
[2021-03-10] MEDS ORDERED: DILTIAZEM HCL 5 MG/ML 5 ML VIAL IV STA (18:15)
[2021-03-10 18:19] LABS: BASOPHILS # (AUTO) 0.1 (0.0-0.1); BASOPHILS % 0.6 % (0.0-1.0); EOSINOPHILS # (AUTO) 0.2 (0.0-0.4); EOSINOPHILS % 1.7 % (0.0-6.0); HEMATOCRIT 26.9 % (34.2-44.1); HEMOGLOBIN 7.5 g/dL (12.0-16.0); LYMPHOCYTES # (AUTO) 2.3 (1.0-3.2); MEAN CORPUSCULAR HEMOGLOBIN 18.9 pg (28-32); MEAN CORPUSCULAR HGB CONC 27.9 g/dL (31-35); MEAN CORPUSCULAR VOLUME 67.8 fL (81-99); MONOCYTES # (AUTO) 0.6 (0.2-0.8); MONOCYTES % 5.5 % (4.4-11.3); NEUTROPHILS # (AUTO) 7.7 (2.1-6.9); NEUTROPHILS % 70.6 % (38.7-80.0); PLATELET COUNT 650 x10e3/uL (140-360); RED BLOOD COUNT 3.97 x10e6/uL (3.6-5.1); RED CELL DISTRIBUTION WIDTH 20.2 % (11.7-14.4)
[2021-03-10 18:28] LABS: INR 2.32; PARTIAL THROMBOPLASTIN TIME 38.3 seconds (23.8-35.5); PROTHROMBIN TIME 26.2 seconds (11.9-14.5)
[2021-03-10] MEDS ORDERED: TRINTELLIX10 MG PO (18:36)
[2021-03-10] MEDS ORDERED: CLONIDINE HCL0.1 MG PO (18:36)
[2021-03-10] MEDS ORDERED: TYLENOL325 MG PO (18:36)
[2021-03-10 18:37] LABS: ALANINE AMINOTRANSFERASE 7 IU/L (0-55); ALBUMIN 2.7 g/dL (3.5-5.0); ALBUMIN/GLOBULIN RATIO 0.5 (0.8-2.0); ALKALINE PHOSPHATASE 114 IU/L (40-150); ANION GAP 16.4 mmol/L (8-16); BLOOD UREA NITROGEN 9 mg/dL (7-26); BUN/CREATININE RATIO 12 (6-25); CALCIUM 8.2 mg/dL (8.4-10.2); CARBON DIOXIDE 22 mmol/L (22-29); CHLORIDE 104 mmol/L (98-107); CREATINE KINASE 20 IU/L (29-168); CREATININE, SERUM 0.74 mg/dL (0.57-1.11); EST GLOMERULAR FILTRATION RATE > 60 ML/MIN (60-); GLUCOSE 116 mg/dL (74-118); POTASSIUM 3.4 mmol/L (3.5-5.1); SODIUM 139 mmol/L (136-145)
[2021-03-10 20:02] VITALS: BP 160/97
== END 2021-03-10 22:00 | disposition home or self-care (01) ==
LOC: ER 18:20
DX: I48.91 Unspecified atrial fibrillation (principal); Z79.01 Long term (current) use of anticoagulants; R06.00 Dyspnea, unspecified; I49.3 Ventricular premature depolarization; J44.9 Chronic obstructive pulmonary disease, unspecified; M06.9 Rheumatoid arthritis, unspecified; B02.9 Zoster without complications; Z20.822 Contact with and (suspected) exposure to COVID-19; Z79.899 Other long term (current) drug therapy; Z86.718 Personal history of other venous thrombosis and embolism; Z87.891 Personal history of nicotine dependence; Z85.3 Personal history of malignant neoplasm of breast; Z90.11 Acquired absence of right breast and nipple; Z88.5 Allergy status to narcotic agent; Z88.0 Allergy status to penicillin; Z88.2 Allergy status to sulfonamides
CPT/HCPCS: 36415; 71045; 80053; 82550; 82553; 83880; 84484; 85025; 85610; 85730; 93005; 99284; U0002

== ENCOUNTER 2021-04-25 10:13 | Inpatient (IN) | payer MEDICARE ==
[~2021-04-25] VITALS: Ht 160 cm; Wt 114.3 kg
[~2021-04-25 10:13] MED LIST changes: +CLONIDINE HCL0.1 MG PO; +TRINTELLIX10 MG PO; +TYLENOL325 MG PO
[2021-04-25] MEDS ORDERED: DIGOXIN INJ 0.25 MG/ML 2 ML AMP IV NR (10:30)
[2021-04-25] MEDS ORDERED: DILTIAZEM HCL 5 MG/ML 5 ML VIAL IV NR (10:30)
[2021-04-25 10:42] LABS: BASOPHILS # (AUTO) 0.1 (0.0-0.1); BASOPHILS % 0.8 % (0.0-1.0); EOSINOPHILS # (AUTO) 0.2 (0.0-0.4); EOSINOPHILS % 1.7 % (0.0-6.0); HEMATOCRIT 25.7 % (34.2-44.1); LYMPHOCYTES # (AUTO) 1.5 (1.0-3.2); LYMPHOCYTES % 14.2 % (18.0-39.1); MEAN CORPUSCULAR HEMOGLOBIN 18.5 pg (28-32); MEAN CORPUSCULAR HGB CONC 26.8 g/dL (31-35); MEAN CORPUSCULAR VOLUME 69.1 fL (81-99); MONOCYTES # (AUTO) 0.7 (0.2-0.8); MONOCYTES % 6.6 % (4.4-11.3); NEUTROPHILS # (AUTO) 8.1 (2.1-6.9); NEUTROPHILS % 76.1 % (38.7-80.0); PLATELET COUNT 598 x10e3/uL (140-360); RED BLOOD COUNT 3.72 x10e6/uL (3.6-5.1); RED CELL DISTRIBUTION WIDTH 19.3 % (11.7-14.4)
[2021-04-25 10:56] LABS: HEMOGLOBIN 6.9 g/dL (12.0-16.0)
[2021-04-25 11:11] LABS: ALBUMIN 2.7 g/dL (3.5-5.0); ALBUMIN/GLOBULIN RATIO 0.5 (0.8-2.0); ANION GAP 15.6 mmol/L (8-16); CALCIUM 8.4 mg/dL (8.4-10.2); CREATININE, SERUM 0.8 mg/dL (0.57-1.11); POTASSIUM 3.6 mmol/L (3.5-5.1)
[2021-04-25] MEDS ORDERED: SODIUM CHLORIDE 0.9% 250ML 250 ML IV ONE (11:15)
[2021-04-25 11:21] LABS: CREATINE KINASE MB 0.6 ng/mL (0-5.0)
[2021-04-25] MEDS ORDERED: LEVOFLOXACIN 750MG/D5W 150ML 150 ML IV STA (11:37)
[2021-04-25] MEDS ORDERED: SODIUM CHLORIDE 0.9% 1000ML 1,000 ML IV STA ×2 (11:37)
[2021-04-25] MEDS ORDERED: MELATONIN3 MG PO (12:28)
[2021-04-25] MEDS ORDERED: ACETAMINOPHEN650 M1 PO (12:28)
[2021-04-25 15:19] LABS: CLARITY,URINE CLEAR (CLEAR); COLOR,URINE YELLOW (YELLOW); KETONES,URINE NEGATIVE (NEGATIVE); LEUKOCYTE ESTERASE ,URINE NEGATIVE (NEGATIVE); NITRITE,URINE NEGATIVE (NEGATIVE); PROTEIN,URINE DIPSTICK NEGATIVE (NEGATIVE); URINE UROBILINOGEN 0.2 mg/dL (0.2 - 1)
[2021-04-25 15:30] LABS: BACTERIA,URINE MANY /HPF; EPITHELIAL CELLS,URINE MANY /LPF; YEAST,URINE MODERATE
[2021-04-25] MEDS ORDERED: ACETAMINOPHEN 325 MG TAB PO PRN (15:45)
[2021-04-25 16:16] VITALS: BP 133/64
[2021-04-25] MEDS: SODIUM CHLORIDE 0.9% 1000ML 1,000 ML IV SCH ×2 (17:00→19:15)
[2021-04-25 19:10] LABS: CREATINE KINASE MB 0.5 ng/mL (0-5.0)
[2021-04-25 19:16] LABS: FREE THYROXINE INDEX 1.958 (1.4-3.8); THYROID STIMULATING HORMONE 1.355 uIU/mL (0.350-4.940)
[2021-04-25 20:00] VITALS: BP 144/66
[2021-04-25 20:33] VITALS: BP 144/66
[2021-04-25 20:52] VITALS: BP 144/66
[2021-04-25] MEDS ORDERED: CLONIDINE HCL 0.1 MG TAB PO SCH (21:00)
[2021-04-25] MEDS: TRAMADOL HCL 50 MG TAB PO PRN (22:32)
[2021-04-25] MEDS: MELATONIN 5 MG TABLET PO SCH (22:32)
[2021-04-25] MEDS ORDERED: SODIUM CHLORIDE 0.9% 250ML 250 ML ONE (22:56)
[2021-04-26] VITALS (8 sets, daily range): BP systolic 126–142; BP diastolic 51–74
[2021-04-26] MEDS: ONDANSETRON HCL INJ 2MG/ML 2ML 2 MG/ML VIAL IV PRN (03:01)
[2021-04-26] MEDS: SODIUM CHLORIDE 0.9% 1000ML 1,000 ML IV SCH (03:15)
[2021-04-26] MEDS ORDERED: SODIUM CHLORIDE 0.9% 250ML 250 ML ONE (05:18)
[2021-04-26 05:26] LABS: CREATINE KINASE MB 0.7 ng/mL (0-5.0)
[2021-04-26 05:47] LABS: ALBUMIN 2.3 g/dL (3.5-5.0); ALBUMIN/GLOBULIN RATIO 0.5 (0.8-2.0); ANION GAP 11.4 mmol/L (8-16); CALCIUM 7.8 mg/dL (8.4-10.2); CREATININE, SERUM 0.67 mg/dL (0.57-1.11); POTASSIUM 3.4 mmol/L (3.5-5.1)
[2021-04-26 06:15] LABS: CHOL/HDL RATIO 3.4 (3.0-3.6)
[2021-04-26 06:34] LABS: THYROID STIMULATING HORMONE 1.724 uIU/mL (0.350-4.940)
[2021-04-26] MEDS ORDERED: DEXAMETHASONE PHOS 10MG INJ 20 MG in SODIUM CHLORIDE 0.9% 50ML 50 ML IV ONE ×2 (08:30→11:00)
[2021-04-26] MEDS ORDERED: DIPHENHYDRAMINE HCL INJ 25 MG in SODIUM CHLORIDE 0.9% 50ML 50 ML IV ONE ×2 (08:30→10:30)
[2021-04-26] MEDS ORDERED: IRON DEXTRAN INJ 50 MG in SODIUM CHLORIDE 0.9% 100 ML IV ONE ×3 (08:30→12:00)
[2021-04-26] MEDS ORDERED: IRON DEXTRAN INJ 500 MG in SODIUM CHLORIDE 0.9% 500ML 500 ML IV PRN (08:30)
[2021-04-26] MEDS ORDERED: FAMOTIDINE INJ 20 MG in SODIUM CHLORIDE 0.9% 50ML 50 ML IV ONE ×2 (08:30→10:30)
[2021-04-26] MEDS: DILTIAZEM HCL ER 120 MG CAP PO SCH (08:47)
[2021-04-26] MEDS: PANTOPRAZOLE SOD 40 MG TABEC PO SCH (08:48)
[2021-04-26] MEDS: VORTIOXETINE HYDROBROMIDE 10 MG PO SCH (09:00)
[2021-04-26] MEDS ORDERED: RIVAROXABAN 20 MG TABLET PO SCH (09:00)
[2021-04-26 10:39] LABS: BASOPHILS # (AUTO) 0.1 (0.0-0.1); BASOPHILS % 0.6 % (0.0-1.0); EOSINOPHILS # (AUTO) 0.2 (0.0-0.4); EOSINOPHILS % 1.9 % (0.0-6.0); HEMATOCRIT 29.3 % (34.2-44.1); HEMOGLOBIN 8.3 g/dL (12.0-16.0); LYMPHOCYTES # (AUTO) 1.3 (1.0-3.2); LYMPHOCYTES % 15.6 % (18.0-39.1); MEAN CORPUSCULAR HEMOGLOBIN 20.9 pg (28-32); MEAN CORPUSCULAR HGB CONC 28.3 g/dL (31-35); MEAN CORPUSCULAR VOLUME 73.8 fL (81-99); MONOCYTES # (AUTO) 0.6 (0.2-0.8); MONOCYTES % 6.4 % (4.4-11.3); NEUTROPHILS # (AUTO) 6.4 (2.1-6.9); NEUTROPHILS % 74.9 % (38.7-80.0); PLATELET COUNT 418 x10e3/uL (140-360); RED BLOOD COUNT 3.97 x10e6/uL (3.6-5.1); RED CELL DISTRIBUTION WIDTH 21.8 % (11.7-14.4)
[2021-04-26 14:32] LABS: BASOPHILS % 0.4 % (0.0-1.0); EOSINOPHILS # (AUTO) 0.2 (0.0-0.4); EOSINOPHILS % 2.1 % (0.0-6.0); HEMATOCRIT 28.5 % (34.2-44.1); HEMOGLOBIN 8.2 g/dL (12.0-16.0); LYMPHOCYTES # (AUTO) 1.4 (1.0-3.2); LYMPHOCYTES % 19.2 % (18.0-39.1); MEAN CORPUSCULAR HEMOGLOBIN 21.3 pg (28-32); MEAN CORPUSCULAR HGB CONC 28.8 g/dL (31-35); MONOCYTES # (AUTO) 0.5 (0.2-0.8); MONOCYTES % 6.6 % (4.4-11.3); NEUTROPHILS # (AUTO) 5.2 (2.1-6.9); NEUTROPHILS % 71.2 % (38.7-80.0); PLATELET COUNT 394 x10e3/uL (140-360); RED BLOOD COUNT 3.85 x10e6/uL (3.6-5.1)
[2021-04-26 15:12] LABS: ANISOCYTOSIS SLIGHT; HYPOCHROMASIA SLIGHT; MICROCYTOSIS SLIGHT; PLATELET ESTIMATE ADEQUATE; PLATELET MORPHOLOGY COMMENT NORMAL
[2021-04-26] MEDS: MELATONIN 5 MG TABLET PO SCH (23:07)
[2021-04-26] MEDS: TRAMADOL HCL 50 MG TAB PO PRN (23:08)
[2021-04-26] MEDS ORDERED: CYANOCOBALAMIN INJ 1,000 MCG/ML VIAL IM ONE (23:30)
[2021-04-27] VITALS (8 sets, daily range): BP systolic 112–140; BP diastolic 53–76
[2021-04-27 08:48] LABS: BASOPHILS % 0.2 % (0.0-1.0); HEMATOCRIT 29.4 % (34.2-44.1); HEMOGLOBIN 8.5 g/dL (12.0-16.0); LYMPHOCYTES % 14.9 % (18.0-39.1); MEAN CORPUSCULAR HEMOGLOBIN 21.3 pg (28-32); MEAN CORPUSCULAR HGB CONC 28.9 g/dL (31-35); MEAN CORPUSCULAR VOLUME 73.7 fL (81-99); MONOCYTES # (AUTO) 0.2 (0.2-0.8); MONOCYTES % 2.3 % (4.4-11.3); NEUTROPHILS # (AUTO) 5.4 (2.1-6.9); NEUTROPHILS % 81.7 % (38.7-80.0); PLATELET COUNT 439 x10e3/uL (140-360); RED BLOOD COUNT 3.99 x10e6/uL (3.6-5.1); RED CELL DISTRIBUTION WIDTH 22.2 % (11.7-14.4)
[2021-04-27] MEDS: CYANOCOBALAMIN INJ 1,000 MCG/ML VIAL IM SCH (09:08)
[2021-04-27] MEDS: PANTOPRAZOLE SOD 40 MG TABEC PO SCH (09:10)
[2021-04-27] MEDS: DILTIAZEM HCL ER 120 MG CAP PO SCH (09:10)
[2021-04-27] MEDS: VORTIOXETINE HYDROBROMIDE 10 MG PO SCH (09:12)
[2021-04-27] MEDS ORDERED: POTASSIUM CHLORIDE 20 MEQ TAB CR PO ONE (13:30)
[2021-04-27] MEDS ORDERED: ENOXAPARIN SOD INJ 40 MG/0.4 ML SYR SC SCH (17:00)
[2021-04-27] MEDS: MELATONIN 5 MG TABLET PO SCH (23:41)
[2021-04-28] VITALS (8 sets, daily range): BP systolic 129–144; BP diastolic 53–68
[2021-04-28] MEDS: TRAMADOL HCL 50 MG TAB PO PRN (03:37)
[2021-04-28 06:01] LABS: ANION GAP 11.9 mmol/L (8-16); CALCIUM 8.2 mg/dL (8.4-10.2); CREATININE, SERUM 0.66 mg/dL (0.57-1.11); POTASSIUM 3.9 mmol/L (3.5-5.1)
[2021-04-28 08:47] LABS: BASOPHILS % 0.2 % (0.0-1.0); EOSINOPHILS % 0.1 % (0.0-6.0); HEMATOCRIT 27.9 % (34.2-44.1); HEMOGLOBIN 7.9 g/dL (12.0-16.0); LYMPHOCYTES # (AUTO) 1.7 (1.0-3.2); LYMPHOCYTES % 10.7 % (18.0-39.1); MEAN CORPUSCULAR HGB CONC 28.3 g/dL (31-35); MONOCYTES # (AUTO) 1.2 (0.2-0.8); MONOCYTES % 7.8 % (4.4-11.3); NEUTROPHILS # (AUTO) 12.6 (2.1-6.9); NEUTROPHILS % 80.6 % (38.7-80.0); PLATELET COUNT 430 x10e3/uL (140-360); RED BLOOD COUNT 3.77 x10e6/uL (3.6-5.1); RED CELL DISTRIBUTION WIDTH 23.4 % (11.7-14.4)
[2021-04-28] MEDS: VORTIOXETINE HYDROBROMIDE 10 MG PO SCH (09:00)
[2021-04-28] MEDS: CYANOCOBALAMIN INJ 1,000 MCG/ML VIAL IM SCH (09:58)
[2021-04-28] MEDS: PANTOPRAZOLE SOD 40 MG TABEC PO SCH (09:59)
[2021-04-28] MEDS: DILTIAZEM HCL ER 120 MG CAP PO SCH (09:59)
[2021-04-28 10:03] LABS: ANISOCYTOSIS MODERATE; HYPOCHROMASIA MODERATE; PLATELET ESTIMATE SLIGHTLY INCREASED
[2021-04-28 10:04] LABS: TARGET CELLS FEW
[2021-04-28 10:05] LABS: OVALOCYTES FEW
[2021-04-28 10:06] LABS: PLATELET MORPHOLOGY COMMENT RARE EDTA CLUMPING; RBC MORPHOLOGY COMMENT ABNORMAL; SCHISTOCYTES RARE
[2021-04-28] MEDS: APIXAB 2.5 MG TABLET PO SCH (16:38)
[2021-04-28] MEDS: DRONEDARONE 400 MG TAB PO SCH (16:39)
[2021-04-28] MEDS ORDERED: SODIUM CHLORIDE 0.9% 250ML 250 ML IV ONE (19:10)
[2021-04-28] MEDS: MELATONIN 5 MG TABLET PO SCH (22:16)
[2021-04-29 00:02] VITALS: BP 143/59
[2021-04-29] MEDS: ONDANSETRON HCL INJ 2MG/ML 2ML 2 MG/ML VIAL IV PRN (02:27)
[2021-04-29 04:59] VITALS: BP 137/61
[2021-04-29 07:44] VITALS: BP 141/54
[2021-04-29 08:00] VITALS: BP 141/54
[2021-04-29] MEDS: DRONEDARONE 400 MG TAB PO SCH (08:22)
[2021-04-29] MEDS: CYANOCOBALAMIN INJ 1,000 MCG/ML VIAL IM SCH (09:17)
[2021-04-29] MEDS: APIXAB 2.5 MG TABLET PO SCH (09:18)
[2021-04-29] MEDS: DILTIAZEM HCL ER 120 MG CAP PO SCH (09:18)
[2021-04-29] MEDS: VORTIOXETINE HYDROBROMIDE 10 MG PO SCH (09:19)
[2021-04-29] MEDS: PANTOPRAZOLE SOD 40 MG TABEC PO SCH (09:19)
[2021-04-29 11:27] VITALS: BP 124/67
[2021-04-29 15:34] VITALS: BP 118/52
[2021-04-29 16:45] LABS: BASOPHILS # (AUTO) 0.1 (0.0-0.1); BASOPHILS % 0.6 % (0.0-1.0); EOSINOPHILS # (AUTO) 0.2 (0.0-0.4); EOSINOPHILS % 1.8 % (0.0-6.0); HEMATOCRIT 32.9 % (34.2-44.1); HEMOGLOBIN 9.5 g/dL (12.0-16.0); LYMPHOCYTES # (AUTO) 1.6 (1.0-3.2); MEAN CORPUSCULAR HEMOGLOBIN 21.9 pg (28-32); MEAN CORPUSCULAR HGB CONC 28.9 g/dL (31-35); MEAN CORPUSCULAR VOLUME 75.8 fL (81-99); MONOCYTES # (AUTO) 0.8 (0.2-0.8); MONOCYTES % 7.9 % (4.4-11.3); NEUTROPHILS # (AUTO) 7.4 (2.1-6.9); NEUTROPHILS % 73.2 % (38.7-80.0); PLATELET COUNT 391 x10e3/uL (140-360); RED BLOOD COUNT 4.34 x10e6/uL (3.6-5.1); RED CELL DISTRIBUTION WIDTH 24.6 % (11.7-14.4)
== END 2021-04-29 17:01 | disposition home or self-care (01) | DRG 812 ==
LOC: ER 10:22 → ERHOLD 13:22 → MED/SURG2 14:36 → OBSVTOIN 04-27 11:50
PROC: 30233N1 Transfusion of Nonautologous Red Blood Cells into Peripheral Vein, Percutaneous Approach (ICD-10-PCS; principal; 2021-04-25)
DX: D50.9 Iron deficiency anemia, unspecified (principal); Z68.41 Body mass index [BMI] 40.0-44.9, adult; K50.90 Crohn's disease, unspecified, without complications; N17.9 Acute kidney failure, unspecified; I48.20 Chronic atrial fibrillation, unspecified; E87.2 Acidosis; J44.9 Chronic obstructive pulmonary disease, unspecified; Z79.01 Long term (current) use of anticoagulants; Z99.81 Dependence on supplemental oxygen; D51.9 Vitamin B12 deficiency anemia, unspecified; M06.9 Rheumatoid arthritis, unspecified; E66.01 Morbid (severe) obesity due to excess calories; I10 Essential (primary) hypertension; D63.8 Anemia in other chronic diseases classified elsewhere; Z85.3 Personal history of malignant neoplasm of breast; Z90.11 Acquired absence of right breast and nipple; I25.10 Atherosclerotic heart disease of native coronary artery without angina pectoris; Z20.822 Contact with and (suspected) exposure to COVID-19
CPT/HCPCS: 36415; 71045; 80048; 80053; 80061; 81001; 82550; 82553; 82607; 82784; 83540; 83605; 83735; 83880; 84436; 84443; 84466; 84479; 84484; 85025; 85045; 86850; 86900; 86920; 87040; 93005; 93306; 99251; 99285; G0378; J1100; J1160; J1200; J1650; J1750; J2405; J3420; J7030; J7050; P9016; U0002

== ENCOUNTER 2021-09-28 12:08 | Observation (INO) | payer MEDICARE ==
[~2021-09-28] VITALS: Ht 160 cm; Wt 114.3 kg
[~2021-09-28 12:08] MED LIST changes: +ACETAMINOPHEN650 M1 PO; +MELATONIN3 MG PO
[2021-09-28 12:35] LABS: BASOPHILS # (AUTO) 0.1 (0.0-0.1); EOSINOPHILS # (AUTO) 0.2 (0.0-0.4); EOSINOPHILS % 2.5 % (0.0-6.0); HEMATOCRIT 39.6 % (34.2-44.1); HEMOGLOBIN 12.2 g/dL (12.0-16.0); MEAN CORPUSCULAR HEMOGLOBIN 26.8 pg (28-32); MEAN CORPUSCULAR HGB CONC 30.8 g/dL (31-35); MEAN CORPUSCULAR VOLUME 86.8 fL (81-99); MONOCYTES # (AUTO) 0.5 (0.2-0.8); MONOCYTES % 5.5 % (4.4-11.3); NEUTROPHILS # (AUTO) 6.6 (2.1-6.9); NEUTROPHILS % 69.6 % (38.7-80.0); PLATELET COUNT 381 x10e3/uL (140-360); RED BLOOD COUNT 4.56 x10e6/uL (3.6-5.1); RED CELL DISTRIBUTION WIDTH 15.6 % (11.7-14.4)
[2021-09-28 12:52] LABS: ALBUMIN 3.2 g/dL (3.5-5.0); ALBUMIN/GLOBULIN RATIO 0.6 (0.8-2.0); ALKALINE PHOSPHATASE 96 IU/L (40-150); ANION GAP 16.9 mmol/L (8-16); BLOOD UREA NITROGEN 10 mg/dL (7-26); BUN/CREATININE RATIO 12 (6-25); CALCIUM 9.4 mg/dL (8.4-10.2); CARBON DIOXIDE 24 mmol/L (22-29); CHLORIDE 102 mmol/L (98-107); CREATINE KINASE 45 IU/L (29-168); CREATININE, SERUM 0.82 mg/dL (0.57-1.11); EST GLOMERULAR FILTRATION RATE 69 ML/MIN (60-); GLUCOSE 123 mg/dL (74-118); POTASSIUM 3.9 mmol/L (3.5-5.1); SODIUM 139 mmol/L (136-145)
[2021-09-28 12:56] LABS: ALANINE AMINOTRANSFERASE < 6 IU/L (0-55)
[2021-09-28] MEDS ORDERED: GLUCAGON FOR INJ 1 MG VIAL IV ONE (13:00)
[2021-09-28] MEDS ORDERED: SODIUM CHLORIDE 0.9% 500ML 500 ML IV ONE (13:00)
[2021-09-28] MEDS ORDERED: ONDANSETRON HCL INJ 2MG/ML 2ML 2 MG/ML VIAL IV PRN (16:15)
[2021-09-28 16:35] LABS: PARTIAL THROMBOPLASTIN TIME 25.4 seconds (23.8-35.5)
[2021-09-28] MEDS ORDERED: DEXAMETHASONE SOD PHOS INJ 4 MG/ML SDV ONE ×2 (16:42→17:47)
[2021-09-28] MEDS ORDERED: LIDOCAINE HCL 2% LOCAL INJ 5 ML SDV VIAL INJ ONE (16:42)
[2021-09-28] MEDS ORDERED: PROPOFOL IV EMULSION 10 MG/ML 20 ML VIAL ONE (16:42)
[2021-09-28] MEDS ORDERED: POVIDONE IODINE 0.05% 0.05 % ML PO ONE (16:42)
[2021-09-28] MEDS ORDERED: SEVOFLURANE INHAL SOLN 250 ML PEN BTL ONE (16:42)
[2021-09-28] MEDS ORDERED: SUCCINYLCHOLINE CHLORIDE 20 MG/ML 10ML VIAL ONE (16:42)
[2021-09-28] MEDS ORDERED: METOCLOPRAMIDE HCL 10 MG/2ML VIAL ONE (17:58)
[2021-09-28 18:33] VITALS: BP 121/64
[2021-09-28] MEDS: Pantoprazole IV 40 MG in SODIUM CHLORIDE 0.9% 50ML 50 ML IV SCH ×2 (18:42→23:58)
[2021-09-28] MEDS: FAMOTIDINE 20 MG/2 ML VIAL IV SCH (18:42)
[2021-09-28 19:39] LABS: CREATINE KINASE MB 0.9 ng/mL (0-5.0)
[2021-09-28 20:20] VITALS: BP 122/56
[2021-09-28 20:21] VITALS: BP 122/56
[2021-09-28 20:51] VITALS: BP 122/56
[2021-09-28 23:47] VITALS: BP 118/82
[2021-09-29] MEDS: Pantoprazole IV 40 MG in SODIUM CHLORIDE 0.9% 50ML 50 ML IV SCH ×2 (04:00→11:18)
[2021-09-29] MEDS: FAMOTIDINE 20 MG/2 ML VIAL IV SCH (04:15)
[2021-09-29 05:14] LABS: BASOPHILS % 0.2 % (0.0-1.0); HEMOGLOBIN 11.4 g/dL (12.0-16.0); LYMPHOCYTES # (AUTO) 0.9 (1.0-3.2); LYMPHOCYTES % 14.7 % (18.0-39.1); MEAN CORPUSCULAR HEMOGLOBIN 26.5 pg (28-32); MEAN CORPUSCULAR HGB CONC 30.8 g/dL (31-35); MONOCYTES % 0.5 % (4.4-11.3); NEUTROPHILS # (AUTO) 5.3 (2.1-6.9); PLATELET COUNT 334 x10e3/uL (140-360); RED CELL DISTRIBUTION WIDTH 15.5 % (11.7-14.4)
[2021-09-29 05:31] LABS: ALBUMIN 2.8 g/dL (3.5-5.0); ALBUMIN/GLOBULIN RATIO 0.6 (0.8-2.0); ALKALINE PHOSPHATASE 86 IU/L (40-150); ANION GAP 14.3 mmol/L (8-16); BLOOD UREA NITROGEN 10 mg/dL (7-26); BUN/CREATININE RATIO 14 (6-25); CALCIUM 8.4 mg/dL (8.4-10.2); CARBON DIOXIDE 23 mmol/L (22-29); CHLORIDE 104 mmol/L (98-107); CREATININE, SERUM 0.73 mg/dL (0.57-1.11); EST GLOMERULAR FILTRATION RATE 78 ML/MIN (60-); GLUCOSE 135 mg/dL (74-118); POTASSIUM 4.3 mmol/L (3.5-5.1); SODIUM 137 mmol/L (136-145)
[2021-09-29 05:35] VITALS: BP 123/61
[2021-09-29 05:35] LABS: ALANINE AMINOTRANSFERASE < 6 IU/L (0-55)
[2021-09-29 08:17] VITALS: BP 129/59
[2021-09-29 12:00] VITALS: BP 149/74
[2021-09-29] MEDS ORDERED: PANTOPRAZOLE SO40 MG PO (14:00)
[2021-09-29 14:15] LABS: CREATINE KINASE MB 1.2 ng/mL (0-5.0)
[2021-09-29] MEDS ORDERED: XARELTO20 MG PO (14:17)
[2021-09-29 14:49] VITALS: BP 149/74
== END 2021-09-29 14:39 | disposition home or self-care (01) ==
LOC: ER 13:02 → ERHOLD 16:11 → MED/SURG 18:26
DX: T18.128A Food in esophagus causing other injury, initial encounter (principal); X58.XXXA Exposure to other specified factors, initial encounter; K22.10 Ulcer of esophagus without bleeding; K44.9 Diaphragmatic hernia without obstruction or gangrene; K29.70 Gastritis, unspecified, without bleeding; K31.7 Polyp of stomach and duodenum; Z20.822 Contact with and (suspected) exposure to COVID-19; Z85.3 Personal history of malignant neoplasm of breast; Z90.11 Acquired absence of right breast and nipple; K21.9 Gastro-esophageal reflux disease without esophagitis; J44.9 Chronic obstructive pulmonary disease, unspecified; I48.91 Unspecified atrial fibrillation; Z79.01 Long term (current) use of anticoagulants
CPT/HCPCS: 36415 ×2; 43247; 70490; 71045; 71250; 80053 ×2; 82550 ×2; 82553 ×2; 84484 ×2; 85025 ×2; 85610; 85730; 93005; 94799 ×2; 99284; C9113 ×2; G0378 ×2; J0330; J1100; J1610; J2001; J2704; J2765; J7040; U0002; 43239

== ENCOUNTER 2022-12-14 15:24 | Inpatient (IN) | payer MEDICARE ==
[~2022-12-14] VITALS: Ht 160 cm; Wt 114.3 kg
[~2022-12-14 15:24] MED LIST changes: +XARELTO20 MG PO
[2022-12-14] MEDS ORDERED: DILTIAZEM HCL 5 MG/ML 5 ML VIAL IV ONE (15:45)
[2022-12-14] MEDS ORDERED: DILTIAZEM HCL 5 MG/ML 5 ML VIAL IV STA (15:57)
[2022-12-14] MEDS ORDERED: LACTATED RINGER'S 500 ML IV ONE (16:00)
[2022-12-14 16:03] LABS: BASOPHILS # (AUTO) 0.1 (0.0-0.1); BASOPHILS % 0.4 % (0.0-1.0); HEMATOCRIT 30.2 % (34.2-44.1); HEMOGLOBIN 9.7 g/dL (12.0-16.0); LYMPHOCYTES # (AUTO) 1.4 (1.0-3.2); LYMPHOCYTES % 8.4 % (18.0-39.1); MEAN CORPUSCULAR HEMOGLOBIN 25.7 pg (28-32); MEAN CORPUSCULAR HGB CONC 32.1 g/dL (31-35); MEAN CORPUSCULAR VOLUME 79.9 fL (81-99); MONOCYTES # (AUTO) 1.1 (0.2-0.8); NEUTROPHILS # (AUTO) 13.7 (2.1-6.9); NEUTROPHILS % 83.5 % (38.7-80.0); PLATELET COUNT 510 x10e3/uL (140-360); RED BLOOD COUNT 3.78 x10e6/uL (3.6-5.1); RED CELL DISTRIBUTION WIDTH 16.4 % (11.7-14.4)
[2022-12-14] MEDS ORDERED: METOPROLOL TARTRATE INJ 1 MG/ML VIAL IV ONE (16:30)
[2022-12-14 16:48] LABS: ALBUMIN 2.4 g/dL (3.5-5.0); ALBUMIN/GLOBULIN RATIO 0.5 (0.8-2.0); ANION GAP 16.6 mmol/L (8-16); CALCIUM 7.7 mg/dL (8.4-10.2); CREATININE, SERUM 0.85 mg/dL (0.57-1.11)
[2022-12-14 16:51] LABS: POTASSIUM 2.6 mmol/L (3.5-5.1)
[2022-12-14] MEDS ORDERED: POTASSIUM CHLORIDE 20MEQ/100ML 100 ML IV ONE (17:00)
[2022-12-14] MEDS ORDERED: POTASSIUM CHLORIDE 20 MEQ TAB CR PO STA (18:23)
[2022-12-14] MEDS ORDERED: SODIUM CHLORIDE FLUSH 10 ML SYR INJ PRN (18:30)
[2022-12-14] MEDS ORDERED: ONDANSETRON HCL INJ 2MG/ML 2ML 2 MG/ML VIAL IV PRN (18:30)
[2022-12-14] MEDS ORDERED: SODIUM CHLORIDE 0.9% 1000ML 1,000 ML IV ONE (18:30)
[2022-12-14] MEDS ORDERED: ACETAMINOPHEN 325 MG TAB PO PRN (20:30)
[2022-12-14 21:25] LABS: INR 1.65; PROTHROMBIN TIME 19.6 seconds (11.9-14.5)
[2022-12-14 21:30] VITALS: BP 110/68
[2022-12-14 21:40] VITALS: BP 110/68
[2022-12-14] MEDS ORDERED: METOPROLOL TARTRATE 25 MG TAB PO SCH (22:00)
[2022-12-14 22:02] LABS: THYROID STIMULATING HORMONE 1.512 uIU/mL (0.350-4.940)
[2022-12-14] MEDS ORDERED: WARFARIN SODIUM6 MG PO (23:29)
[2022-12-14] MEDS ORDERED: SERTRALINE HCL50 MG PO (23:29)
[2022-12-14] MEDS ORDERED: DILTIAZEM 24HR240 M1 PO (23:29)
[2022-12-14] MEDS: TRAMADOL HCL 50 MG TAB PO PRN (23:30)
[2022-12-15] MEDS: IPRATROPIUM BROMIDE 0.02% 2.5 ML NEB NEB SCH ×7 (00:10→21:52)
[2022-12-15] MEDS: LEVALBUTEROL HCL SOLN NEBU 1.25 MG/3 ML NEB INH SCH ×4 (00:10→18:26)
[2022-12-15 00:48] LABS: CREATINE KINASE MB 0.9 ng/mL (0-5.0)
[2022-12-15 04:10] VITALS: BP 116/53
[2022-12-15 05:25] LABS: BASOPHILS # (AUTO) 0.1 (0.0-0.1); BASOPHILS % 0.5 % (0.0-1.0); EOSINOPHILS % 0.3 % (0.0-6.0); HEMATOCRIT 26.2 % (34.2-44.1); HEMOGLOBIN 8.2 g/dL (12.0-16.0); LYMPHOCYTES # (AUTO) 2.1 (1.0-3.2); MEAN CORPUSCULAR HEMOGLOBIN 25.3 pg (28-32); MEAN CORPUSCULAR HGB CONC 31.3 g/dL (31-35); MEAN CORPUSCULAR VOLUME 80.9 fL (81-99); MONOCYTES # (AUTO) 0.9 (0.2-0.8); MONOCYTES % 7.7 % (4.4-11.3); NEUTROPHILS # (AUTO) 8.5 (2.1-6.9); NEUTROPHILS % 72.7 % (38.7-80.0); PLATELET COUNT 456 x10e3/uL (140-360); RED BLOOD COUNT 3.24 x10e6/uL (3.6-5.1); RED CELL DISTRIBUTION WIDTH 16.1 % (11.7-14.4)
[2022-12-15 05:53] LABS: ALBUMIN/GLOBULIN RATIO 0.4 (0.8-2.0); ANION GAP 13.9 mmol/L (8-16); CALCIUM 8.1 mg/dL (8.4-10.2); CREATININE, SERUM 0.79 mg/dL (0.57-1.11); MAGNESIUM 1.4 MG/DL (1.3-2.1)
[2022-12-15 05:55] LABS: POTASSIUM 2.9 mmol/L (3.5-5.1)
[2022-12-15] MEDS: GUAIFENESIN 600 MG TAB PO PRN ×2 (06:47→21:05)
[2022-12-15] MEDS: BENZONATATE 100 MG CAP PO PRN ×2 (06:47→21:05)
[2022-12-15] MEDS ORDERED: POTASSIUM CHLORIDE 20 MEQ TAB CR PO ONE (07:00)
[2022-12-15] MEDS: SERTRALINE HCL 50 MG TAB PO SCH (08:52)
[2022-12-15] MEDS: FERROUS SULFATE 325 MG TAB PO SCH (08:52)
[2022-12-15] MEDS: DILTIAZEM HCL ER 120 MG CAP PO SCH (08:53)
[2022-12-15] MEDS: CYANOCOBALAMIN 1,000 MCG TAB PO SCH (08:54)
[2022-12-15 09:02] VITALS: BP 119/53
[2022-12-15 11:10] LABS: CREATINE KINASE MB 0.9 ng/mL (0-5.0)
[2022-12-15 11:38] VITALS: BP 113/59
[2022-12-15 16:29] VITALS: BP 103/75
[2022-12-15] MEDS ORDERED: WARFARIN SOD 5 MG TAB PO SCH (17:00)
[2022-12-15] MEDS: WARFARIN SOD 3 MG TAB PO SCH (17:00)
[2022-12-15 21:00] VITALS: BP 103/75
[2022-12-15] MEDS: TRAMADOL HCL 50 MG TAB PO PRN (21:05)
[2022-12-15 21:50] VITALS: BP 117/75
[2022-12-16] MEDS: IPRATROPIUM BROMIDE 0.02% 2.5 ML NEB NEB SCH ×6 (01:40→20:15)
[2022-12-16] MEDS: LEVALBUTEROL HCL SOLN NEBU 1.25 MG/3 ML NEB INH SCH ×4 (01:47→20:15)
[2022-12-16 05:47] LABS: BASOPHILS # (AUTO) 0.1 (0.0-0.1); BASOPHILS % 0.6 % (0.0-1.0); EOSINOPHILS # (AUTO) 0.1 (0.0-0.4); EOSINOPHILS % 0.8 % (0.0-6.0); HEMATOCRIT 28.7 % (34.2-44.1); LYMPHOCYTES # (AUTO) 2.2 (1.0-3.2); LYMPHOCYTES % 19.1 % (18.0-39.1); MEAN CORPUSCULAR HEMOGLOBIN 25.5 pg (28-32); MEAN CORPUSCULAR HGB CONC 31.4 g/dL (31-35); MEAN CORPUSCULAR VOLUME 81.3 fL (81-99); MONOCYTES # (AUTO) 0.8 (0.2-0.8); MONOCYTES % 6.6 % (4.4-11.3); NEUTROPHILS # (AUTO) 8.4 (2.1-6.9); NEUTROPHILS % 71.5 % (38.7-80.0); PLATELET COUNT 480 x10e3/uL (140-360); RED BLOOD COUNT 3.53 x10e6/uL (3.6-5.1); RED CELL DISTRIBUTION WIDTH 16.5 % (11.7-14.4)
[2022-12-16 06:48] LABS: INR 1.92
[2022-12-16 07:05] LABS: ALBUMIN 2.1 g/dL (3.5-5.0); ALBUMIN/GLOBULIN RATIO 0.4 (0.8-2.0); CALCIUM 8.1 mg/dL (8.4-10.2); CREATININE, SERUM 0.8 mg/dL (0.57-1.11)
[2022-12-16 08:09] LABS: BAND NEUTROPHILS % (MANUAL) 2 %; LYMPHOCYTES % (MANUAL) 19 % (19-48); MONOCYTES % (MANUAL) 6 % (3.4-9.0); NEUTROPHILS % (MANUAL) 72 % (40-74)
[2022-12-16 08:10] LABS: PLATELET ESTIMATE ADEQUATE; PLATELET MORPHOLOGY COMMENT NORMAL; RBC MORPHOLOGY COMMENT NORMAL
[2022-12-16] MEDS: CYANOCOBALAMIN 1,000 MCG TAB PO SCH (08:20)
[2022-12-16] MEDS: FERROUS SULFATE 325 MG TAB PO SCH (08:20)
[2022-12-16] MEDS: SERTRALINE HCL 50 MG TAB PO SCH (08:20)
[2022-12-16] MEDS: BACITRACIN ZINC 15 GM OINT TOP SCH (08:20)
[2022-12-16] MEDS: DILTIAZEM HCL ER 120 MG CAP PO SCH (08:20)
[2022-12-16 09:00] VITALS: BP 112/69
[2022-12-16] MEDS ORDERED: AZELASTINE HCL 137 MCG NASAL SPRAY NS SCH (09:00)
[2022-12-16] MEDS: FLUTICASONE PROPIONATE NASAL SPRAY NS SCH ×2 (09:00→17:35)
[2022-12-16 09:12] VITALS: BP 112/69
[2022-12-16] MEDS: POTASSIUM CHLORIDE 20 MEQ TAB CR PO SCH (10:00)
[2022-12-16] MEDS: BENZONATATE 100 MG CAP PO PRN ×3 (10:00→22:52)
[2022-12-16] MEDS: GUAIFENESIN 600 MG TAB PO PRN ×3 (10:00→22:52)
[2022-12-16 12:00] VITALS: BP 115/70
[2022-12-16] MEDS: ALBUTEROL SULFATE HFA 8GM INHALATION AEROSOL INH PRN ×2 (12:20→22:52)
[2022-12-16] MEDS ORDERED: ONDANSETRON HCL 4 MG ORAL DISINTEGRATING TAB PO PRN (12:45)
[2022-12-16 16:20] VITALS: BP 125/62
[2022-12-16] MEDS: WARFARIN SOD 3 MG TAB PO SCH (16:45)
[2022-12-16 17:07] LABS: CLARITY,URINE CLOUDY (CLEAR); COLOR,URINE AMBER (YELLOW); KETONES,URINE 1+ (NEGATIVE); LEUKOCYTE ESTERASE ,URINE 1+ (NEGATIVE); NITRITE,URINE NEGATIVE (NEGATIVE); PROTEIN,URINE DIPSTICK >=300 (NEGATIVE); URINE UROBILINOGEN 2 mg/dL (0.2 - 1)
[2022-12-16 17:16] LABS: BACTERIA,URINE MANY /HPF; EPITHELIAL CELLS,URINE FEW /LPF; RBC,URINE >50 /HPF (0-5); WBC,URINE (MAN) >50 /HPF (0-5)
[2022-12-16 20:00] VITALS: BP 119/64
[2022-12-16 20:30] VITALS: BP 119/64
[2022-12-17] VITALS: BP 132/67
[2022-12-17] MEDS: LEVALBUTEROL HCL SOLN NEBU 1.25 MG/3 ML NEB INH SCH ×5 (01:40→23:50)
[2022-12-17] MEDS: IPRATROPIUM BROMIDE 0.02% 2.5 ML NEB NEB SCH ×6 (03:00→23:50)
[2022-12-17] MEDS ORDERED: FERROUS SULFATE 325 MG TAB PO SCH (09:00)
[2022-12-17] MEDS ORDERED: FOSFOMYCIN TROMETHAMINE 3 GM PACKET PO ONE (09:00)
[2022-12-17 09:14] VITALS: BP 130/87
[2022-12-17] MEDS: DILTIAZEM HCL ER 120 MG CAP PO SCH (11:09)
[2022-12-17] MEDS: POTASSIUM CHLORIDE 20 MEQ TAB CR PO SCH (11:09)
[2022-12-17] MEDS: SERTRALINE HCL 50 MG TAB PO SCH (11:09)
[2022-12-17] MEDS: FERROUS SULFATE 325 MG TAB PO SCH (11:09)
[2022-12-17] MEDS: CYANOCOBALAMIN 1,000 MCG TAB PO SCH (11:09)
[2022-12-17] MEDS: FLUTICASONE PROPIONATE NASAL SPRAY NS SCH ×2 (11:10→18:00)
[2022-12-17 12:32] VITALS: BP 115/72
[2022-12-17] MEDS: BACITRACIN ZINC 15 GM OINT TOP SCH (13:46)
[2022-12-17] MEDS ORDERED: FUROSEMIDE INJ 10 MG/ML 4 ML VIAL IV ONE (15:45)
[2022-12-17 16:26] VITALS: BP 130/67
[2022-12-17] MEDS: WARFARIN SOD 3 MG TAB PO SCH (17:56)
[2022-12-17 20:00] VITALS: BP 124/68
[2022-12-17 20:22] VITALS: BP 130/67
[2022-12-17] MEDS: TRAMADOL HCL 50 MG TAB PO PRN (22:18)
[2022-12-18] VITALS: BP 128/72
[2022-12-18] MEDS: IPRATROPIUM BROMIDE 0.02% 2.5 ML NEB NEB SCH ×4 (03:15→14:00)
[2022-12-18 04:00] VITALS: BP 108/58
[2022-12-18 06:06] LABS: BASOPHILS # (AUTO) 0.1 (0.0-0.1); BASOPHILS % 0.5 % (0.0-1.0); EOSINOPHILS # (AUTO) 0.1 (0.0-0.4); EOSINOPHILS % 0.9 % (0.0-6.0); HEMOGLOBIN 10.1 g/dL (12.0-16.0); LYMPHOCYTES % 17.5 % (18.0-39.1); MEAN CORPUSCULAR HGB CONC 31.6 g/dL (31-35); MEAN CORPUSCULAR VOLUME 82.5 fL (81-99); MONOCYTES # (AUTO) 0.8 (0.2-0.8); MONOCYTES % 6.5 % (4.4-11.3); NEUTROPHILS # (AUTO) 8.4 (2.1-6.9); NEUTROPHILS % 71.7 % (38.7-80.0); PLATELET COUNT 520 x10e3/uL (140-360); RED BLOOD COUNT 3.88 x10e6/uL (3.6-5.1)
[2022-12-18 06:15] LABS: INR 3.33; PROTHROMBIN TIME 34.1 seconds (11.9-14.5)
[2022-12-18 06:43] LABS: ALBUMIN 2.3 g/dL (3.5-5.0); ALBUMIN/GLOBULIN RATIO 0.4 (0.8-2.0); ANION GAP 16.9 mmol/L (8-16); CALCIUM 8.3 mg/dL (8.4-10.2); CREATININE, SERUM 0.79 mg/dL (0.57-1.11); POTASSIUM 3.9 mmol/L (3.5-5.1)
[2022-12-18] MEDS: LEVALBUTEROL HCL SOLN NEBU 1.25 MG/3 ML NEB INH SCH ×2 (07:10→10:00)
[2022-12-18 08:19] VITALS: BP 115/48
[2022-12-18 08:48] VITALS: BP 115/48
[2022-12-18] MEDS: CYANOCOBALAMIN 1,000 MCG TAB PO SCH (09:02)
[2022-12-18] MEDS: DILTIAZEM HCL ER 120 MG CAP PO SCH (09:02)
[2022-12-18] MEDS: FERROUS SULFATE 325 MG TAB PO SCH (09:02)
[2022-12-18] MEDS: SERTRALINE HCL 50 MG TAB PO SCH (09:02)
[2022-12-18] MEDS: POTASSIUM CHLORIDE 20 MEQ TAB CR PO SCH (09:03)
[2022-12-18] MEDS: FLUTICASONE PROPIONATE NASAL SPRAY NS SCH (09:56)
[2022-12-18] MEDS: BACITRACIN ZINC 15 GM OINT TOP SCH (09:57)
[2022-12-18] MEDS ORDERED: Fluticasone Propionate NS (11:45)
[2022-12-18] MEDS ORDERED: VITAMIN B-121000 MCG PO (11:45)
[2022-12-18] MEDS ORDERED: DILTIAZEM 24HR120 M1 PO (11:45)
[2022-12-18] MEDS ORDERED: MUCINEX600 MG PO (11:45)
[2022-12-18] MEDS ORDERED: VENTOLIN HFA18 GM INH (11:45)
[2022-12-18] MEDS ORDERED: Benzonatate PO (11:45)
[2022-12-18] MEDS ORDERED: Ferrous Sulfate PO (11:45)
[2022-12-18] MEDS ORDERED: KLOR-CON M2020 MEQ PO (11:45)
[2022-12-18] MEDS ORDERED: FEROSUL325 MG PO (11:49)
[2022-12-18] MEDS ORDERED: FLONASE ALLERG9.9 ML INH (11:49)
[2022-12-18] MEDS ORDERED: BENZONATATE100 MG PO (11:49)
[2022-12-18 12:00] VITALS: BP 115/55
== END 2022-12-18 14:47 | DRG 308 ==
LOC: ER 15:39 → ERHOLD 18:29 → MED/SURG2 21:12
PROVIDERS: ADMIT Internal Medicine; ATTEND Internal Medicine
DX: I48.11 Longstanding persistent atrial fibrillation (principal); G93.41 Metabolic encephalopathy; J44.1 Chronic obstructive pulmonary disease with (acute) exacerbation; K50.919 Crohn's disease, unspecified, with unspecified complications; N39.0 Urinary tract infection, site not specified; I50.32 Chronic diastolic (congestive) heart failure; E87.6 Hypokalemia; D72.9 Disorder of white blood cells, unspecified; J06.9 Acute upper respiratory infection, unspecified; H91.93 Unspecified hearing loss, bilateral; D50.9 Iron deficiency anemia, unspecified; M06.9 Rheumatoid arthritis, unspecified; B02.9 Zoster without complications; S21.209A Unspecified open wound of unspecified back wall of thorax without penetration into thoracic cavity, initial encounter; E53.8 Deficiency of other specified B group vitamins; R09.02 Hypoxemia; I11.0 Hypertensive heart disease with heart failure; Z99.81 Dependence on supplemental oxygen; Z85.3 Personal history of malignant neoplasm of breast; Z88.0 Allergy status to penicillin; Z88.2 Allergy status to sulfonamides; Z79.01 Long term (current) use of anticoagulants; Z59.6 Low income; Z74.01 Bed confinement status; Z20.822 Contact with and (suspected) exposure to COVID-19; Z86.718 Personal history of other venous thrombosis and embolism
CPT/HCPCS: 36415; 70450; 71045; 80053; 81001; 82550; 82553; 82607; 83690; 83735; 84443; 84484; 85025; 85610; 86592; 87040; 87071; 87086; 87186; 87205; 93005; 93306; 94640; 94799; 99252; 99284; J1940; J3480